=== PATIENT | male | born 1990 | race Two or more races ===

== ENCOUNTER 2018-12-08 16:32 | Emergency (ER) | payer OTHER ==
[~2018-12-08] VITALS: Ht 177.8 cm; Wt 82.3 kg
[2018-12-08] MEDS ORDERED: KETOROLAC TROMETHAMINE 30 MG/ML VIAL IV STA (17:31)
[2018-12-08] MEDS ORDERED: ONDANSETRON HCL INJ 2MG/ML 2ML 2 MG/ML VIAL IV STA (17:31)
[2018-12-08] MEDS ORDERED: SODIUM CHLORIDE 0.9% 1000ML 1,000 ML IV SCH (17:45)
[2018-12-08] MEDS ORDERED: IOPAMIDOL 300MG/ML 100 ML INFUS..BTL IV ONE (18:30)
--- NOTE | 2018-12-08 18:51 | Diagnostic Imaging Report ---
ADDENDUM #1 Addendum requested by the referring physician. Normal appendix is identified without surrounding inflammatory changes (series 2, image 54). Signed by: Jamari Moraes MD on 12/08/2018 7:05 PM ORIGINAL REPORT EXAMINATION: CT of the abdomen and pelvis with contrast. TECHNIQUE: Spiral CT images of the abdomen and pelvis were performed from the lung bases to the lesser trochanters after the intravenous administration of 150 cc of Omnipaque 300 and the oral administration of Redicat. Coronal and sagittal reformatted images were obtained. COMPARISON: None. CLINICAL HISTORY:Subacute lower abdominal pain DISCUSSION: ABDOMEN/PELVIS: LOWER THORAX:A calcified granuloma in the left lower lobe along the left hemidiaphragm. HEPATOBILIARY: No focal hepatic lesions. No intra or extrahepatic biliary ductal dilation. GALLBLADDER: No radio-opaque stones or sludge. No wall thickening. SPLEEN: No splenomegaly. PANCREAS: No focal masses or ductal dilatation. ADRENALS: No adrenal nodules. KIDNEYS/URETERS: No hydronephrosis, stones, or solid mass lesions. PELVIC ORGANS/BLADDER: The bladder is normal. PERITONEUM/RETROPERITONEUM: No free air or fluid. LYMPH NODES: No intra-abdominal, retroperitoneal, pelvic or inguinal lymphadenopathy. VESSELS: The celiac trunk,superior and inferior mesenteric and bilateral renal arteries are patent The portal, superior mesenteric and splenic veins are patent. GI TRACT: No distention or wall thickening. BONES AND SOFT TISSUE: No bony destructive lesions. No soft tissue abnormalities. IMPRESSION: Unremarkable abdominal CT with contrast. Signed by: Jamari Moraes MD on 12/08/2018 6:48 PM
[2018-12-08 19:31] VITALS: BP 148/93
== END 2018-12-08 20:42 | disposition home or self-care (01) ==
LOC: FSED 16:32
DX: R10.31 Right lower quadrant pain (principal); R10.32 Left lower quadrant pain; R30.0 Dysuria; R11.2 Nausea with vomiting, unspecified; R19.7 Diarrhea, unspecified
CPT/HCPCS: 74177; 80053; 81003; 85025; 99284; J1885; J2405; Q9967